=== PATIENT | female | born 1990 | race Caucasian/White ===

== ENCOUNTER 2022-08-27 08:02 | Day surgery (SDC) | payer BC, SELFPAY ==
[2022-08-27] VITALS (11 sets, daily range): BP systolic 100–116; BP diastolic 50–71; PULSE 55–80; RESP 14–20; TEMP 36.4–36.7; O2SAT 95–100; BMI 35.6
--- NOTE | 2022-08-27 08:18 | SUR.PREOP ---
HOME COVID TEST NEGATIVE.
--- NOTE | 2022-08-27 08:33 | SUR.PREOP ---
OB HERE FOR HEART TONES AT 0830 PRE-OP.
--- NOTE | 2022-08-27 08:40 | SUR.OPER ---
RN at bedside to doptone FHR. FHR audible in the 150's with audible increase noted. No audible decreases in heart rate noted at this time.
[2022-08-27] MEDS: SODIUM CHLORIDE 0.9 % (FLUSH) 10 ML SYRINGE IVF (08:45)
[2022-08-27] MEDS: LACTATED RINGERS 1000 ML 1,000 ML 100 ML IV ×2 (08:45→12:12)
--- NOTE | 2022-08-27 09:36 | W.ANESCHARGE ---
Anesthesia Charges Start Date/Time Anesthesia Start Date: 08/27/22 Anesthesia Start Time: 11:30 Stop Date/Time Anesthesia Stop Date: 08/27/22 Anesthesia Stop Time: 12:55
--- NOTE | 2022-08-27 10:54 | W.ANESCHARGE ---
Anesthesia Charges Start Date/Time Anesthesia Start Date: 08/27/22 Anesthesia Start Time: 08:18 Stop Date/Time Anesthesia Stop Date: 08/27/22 Anesthesia Stop Time: 10:52
[2022-08-27] MEDS: CEFAZOLIN 2 GM INJ IVP (11:35)
[2022-08-27] MEDS: BUPIVACAINE 0.25% 30 ML INJECTION (12:33)
--- NOTE | 2022-08-27 12:50 | PM.GSPRC ---
Operative Note Date of procedure: 08/27/22 Pre-op diagnosis: 1. Biliary colic in 2. History of choledocholithiasis Post-op diagnosis: Same Type of Procedure: Laparoscopic cholecystectomy Indications: The patient is a 32-year-old female who presents to clinic with worsening biliary colic. Her history is interesting in that a year ago she presented to an outside emergency department with epigastric pain and jaundice. Unfortunately despite this elevation of LFTs, she did not have any evidence of gallstones on ultrasound. She underwent EUS which similarly did not show common bile duct stone or ultrasound. She had a somewhat delayed decrease in bilirubin, however after extensive workup by Gastroenterology it was felt that likely she had rolled a gallstone. She was no longer symptomatic and since stones were not seen on either EUS or ultrasound, no further workup was done. A few weeks ago, she started developing similar pain which recurred. Workup revealed normal LFTs, however she was found to have gallstones. She was in her 2nd trimester of . Because of her history of choledocholithiasis which made her quite ill, as well as worsening biliary colic, now with certain evidence of gallstones, we discussed risks and benefits of watchful waiting verses cholecystectomy during the 2nd trimester of her . After discussion, she agreed to proceed with cholecystectomy Procedure Description: After discussing the risks and benefits of the procedure, the patient signed informed consent.? The operative site was marked and the patient was brought to the operating room and placed on the operating table in supine position.? Care was taken to pad the patient's pressure points.?? The patient was then intubated by anesthesia.?? The operative site was then prepped and draped in the usual sterile fashion.? A time-out was then performed. Entrance to the abdomen was gained via a 5 mm Visiport in the left upper quadrant. The abdomen was insufflated and briefly surveyed for signs of injury. There was none. A 10 mm umbilical port was placed as well as 2 working ports along the right costal margin, all under direct vision. The patient was then placed in reverse Trendelenburg position with the right side up. The gallbladder fundus was grasped and retracted cephalad. The infundibulum was grasped. A combination of hook cautery and blunt dissection was used to carefully dissect out the cystic duct and artery until they could clearly be seen entering the gallbladder without any intervening structures. The gallbladder was dissected off the cystic plate to achieve the critical view. Once this was achieved the cystic duct was clipped with 2 clips proximally and 1 clip distally and transected with the scissors. The cystic artery branched just before entering the gallbladder and I elected to clip each of these branches separately before dividing. The gallbladder was then taken off of the liver bed and removed from the abdomen using an Endo-Catch bag. A bleeding vessel in the gallbladder bed was clipped. This resulted in hemostasis. The gallbladder bed was surveyed for hemostasis which appeared adequate. A small amount of bile and diminutive stones which had spilled was suctioned from the abdomen. The umbilical port fascia was closed with 0 Vicryl. The remaining ports were then removed and the abdomen desufflated. The skin was closed with absorbable subcuticular suture. Sterile dressings were then applied. Instrument sponge and needle counts were correct at the end of the case. The patient was then woken and transferred to the PACU in stable condition. ? The patient was then woken and transported to the recovery area in stable condition. ? The patient tolerated the procedure well. Findings: Gallstones Anesthesia: GETA Surgeon: Teresita Saravia MD Estimated blood loss (mL): 10 Specimen: Gallbladder Condition: stable Disposition: PACU
--- NOTE | 2022-08-27 12:58 | W.ANESCHARGE ---
Anesthesia Charges Start Date/Time Anesthesia Start Date: 08/27/22 Anesthesia Start Time: 11:30 Stop Date/Time Anesthesia Stop Date: 08/27/22 Anesthesia Stop Time: 12:55
--- NOTE | 2022-08-27 13:12 | SUR.PHASEI ---
hear tones auscultated per CHALINO Mcgee RN at 1309 at rate of 130bpm
[2022-08-27] MEDS: HYDROCODONE-ACETAMIN 5-325 MG 1 TAB PO (13:41)
--- NOTE | 2022-08-27 13:55 | SUR.PHASEII ---
Radhika RNC came to assess FHT's again d/t pt c/o feeling some cramping after surgery. FHR's range from 129-144. with no audible big increases or decreases noted.
== END 2022-08-27 14:18 | disposition home or self-care (01) ==
PROVIDERS: PCP Family Medicine; Visit Provider Surgery
PROC: 0FT44ZZ Resection of Gallbladder, Percutaneous Endoscopic Approach (ICD-10-PCS; CPT 47562; principal; 2022-08-27 09:15)
DX: O99.612 Diseases of the digestive system complicating pregnancy, second trimester (principal); Z3A.17 17 weeks gestation of pregnancy; K80.10 Calculus of gallbladder with chronic cholecystitis without obstruction
CPT/HCPCS: 47562; 00790; 88304; A9270; J0330; J0690; J1100; J1170; J2250; J2405; J2704; J2710; J3010; J3490; J7120